=== PATIENT | female | born 1925 | race African-American/Black ===

== ENCOUNTER 2016-05-01 08:10 | Outpatient (CLI) | payer MEDICARE, OTHER ==
[~2016-05-01] VITALS: Ht 177.8 cm; Wt 69.0 kg
[~2016-05-01 08:10] MED LIST: ASPIRIN 81M81 MG/TA2 PO; BRILINTA90 MG PO; LOPRESSOR 225 MG/TAB PO; MINIPRESS 1M1 MG/CAP PO; MULTAQ400 MG PO; NITROSTAT0.4 MG/TAB SL
[2016-05-01] MEDS ORDERED: PACERONE200 MG PO (08:39)
[2016-05-01] MEDS ORDERED: NORVASC 5MG5 MG/TAB PO (08:40)
[2016-05-01] MEDS ORDERED: MULTIPLE VITAMI1 CAP PO (08:41)
[2016-05-01] MEDS ORDERED: NAMENDA 10MG TA10 MG PO (08:41)
[2016-05-01] MEDS ORDERED: TYLENOL 325MG325 MG PO (08:42)
[2016-05-01] MEDS ORDERED: KLONOPIN 0.5MG0.5 MG PO (08:42)
[2016-05-01] MEDS ORDERED: MILK OF MA400 MG/52 PO (08:43)
[2016-05-01 08:57] VITALS: BP 164/106; PULSE 85
[2016-05-01 10:03] VITALS: BP 141/82; PULSE 78
[2016-05-01 10:15] VITALS: BP 155/88; PULSE 77
[2016-05-01 10:30] VITALS: BP 144/82; PULSE 73
[2016-05-01 10:45] VITALS: BP 151/90; PULSE 74
== END 2016-05-01 11:03 | disposition home health service (06) ==
LOC: COL.RAD 08:10
DX: I48.0 Paroxysmal atrial fibrillation (principal); R94.31 Abnormal electrocardiogram [ECG] [EKG]; Z95.818 Presence of other cardiac implants and grafts
CPT/HCPCS: C1764; J0690; J2250; J3010